=== PATIENT | female | born 1995 | race Caucasian/White ===

== ENCOUNTER 2017-02-22 11:48 | Emergency (ER) | payer BC ==
[~2017-02-22 11:48] MED LIST: CIPRO PO; IBUPROFEN800 MG PO; ZITHROMAX PO; ZOFRAN ODT4 MG PO
[2017-02-22 11:54] LABS: INFLUENZA A NEG (NEG); INFLUENZA B NEG (NEG)
== END 2017-02-22 12:12 | disposition home or self-care (01) ==
LOC: CFTX 11:48
PROVIDERS: Nurse Practitioner
DX: J06.9 Acute upper respiratory infection, unspecified (principal); F17.210 Nicotine dependence, cigarettes, uncomplicated; Z79.899 Other long term (current) drug therapy
CPT/HCPCS: 87804; 87880; 99282